=== PATIENT | female | born 1950 | race Caucasian/White ===

== ENCOUNTER → 2020-04-02 15:00 | Outpatient (CLI) | payer OTHER, SELFPAY ==
[2020-04-02 16:27] LABS: COVID19 -Nasal RAPID Negative (Negative)
== END ==
PROVIDERS: Visit Provider Nurse Practitioner
DX: Z11.59 Encounter for screening for other viral diseases (principal)
CPT/HCPCS: 87635

== ENCOUNTER 2020-04-04 12:13 | Day surgery (SDC) | payer OTHER, SELFPAY ==
[2020-03-24 12:57] VITALS: BMI 31.1
[2020-04-04] VITALS (14 sets, daily range): BP systolic 89–181; BP diastolic 41–81; PULSE 69–94; RESP 15–93; TEMP 35.9–36.9; O2SAT 16–98; BMI 31.1
--- NOTE | 2020-04-04 | DI.RAD.S_ITS ---
PROCEDURE: XR PELVIS 1-2V INDICATIONS: POST OP TECHNIQUE: 1 view of the lower pelvis acquired. COMPARISON: [facility], CR, XR HIP LT 1V, 04/04/2020, 14:46. FINDINGS: Bones: Patient is status post left total hip arthroplasty, with hardware components in expected positions. The hip joint appears congruent. The visualized bony structures appear intact. Soft tissues: Overlying postoperative changes are noted. No suspicious soft tissue densities. Atherosclerotic vascular calcifications are seen bilaterally. IMPRESSION: Status post left hip arthroplasty with expected postoperative findings. Dictated by: Crow Gloria M.D. on 04/04/2020 at 15:37 Approved by: Crow Gloria M.D. on 04/04/2020 at 15:38
--- NOTE | 2020-04-04 06:00 | DI.RAD.S_ITS ---
PROCEDURE: XR HIP LT 1V INDICATIONS: INNER OP TECHNIQUE: 1 view(s) of the hip acquired. COMPARISON: None. FINDINGS: Single intraoperative fluoroscopic image demonstrating left hip arthroplasty in expected alignment Dictated by: Xander Thomas M.D. on 04/04/2020 at 15:56 Approved by: Xander Thomas M.D. on 04/04/2020 at 15:56
--- NOTE | 2020-04-04 12:59 | PM.PREOP ---
Pre-operative Note COVID-19 COVID-19 status: Negative Result date/Date tested (Pos, Neg/Pending): 04/02/20 Interval Note History & Physical reviewed/Exam performed by Physician: Yes Changes to H&P: No H&P completed within 30 days and has changed as indicated here:: Plan for left anterior HAKAN
[2020-04-04] MEDS: MELOXICAM 7.5 MG TABLET 15 MG PO (13:07)
[2020-04-04] MEDS: ACETAMINOPHEN 325 MG TABLET 975 MG PO (13:07)
[2020-04-04] MEDS: PREGABALIN 75 MG CAPSULE PO (13:07)
[2020-04-04] MEDS: LACTATED RINGERS 1,000 ML 42 ML IV ×3 (13:08→15:39)
[2020-04-04] MEDS: CEFAZOLIN 2 GM/100 ML FROZ.PIGGY IV ×2 (13:37→21:40)
[2020-04-04] MEDS: TRANEXAMIC ACID 1,000 MG VIAL 1000 MG INJ ×2 (14:04→15:26)
--- NOTE | 2020-04-04 14:25 | SUR.OPER ---
Supine on padded [place] table with bilateral legs secured in padded positioning boots and suspended in positioning spars, operative leg in traction per surgeon. Head on one pillow. Arm on non-operative side secured on padded armboard <90 degrees abduction. Arm on operative side padded and resting across chest then secured with tape over sheet. Padded perineal post in place per surgeon.
[2020-04-04] MEDS: ROPIVACAINE 0.5% PF 5 MG/ML 20ML VIAL 60 ML INJ (14:40)
[2020-04-04] MEDS: MORPHINE 4 MG/ML INJ INJ (14:40)
[2020-04-04] MEDS: KETOROLAC 30 MG/ML VIAL IV (14:40)
[2020-04-04] MEDS: SODIUM CHLORIDE IRRIG SOLUTION 250 ML, POVIDONE-IODINE SPONGE STICKS 1 APPLIC IRR (14:42)
--- NOTE | 2020-04-04 15:39 | PM.OP.1 ---
Operative Date/Time/Diagnoses Date of procedure: 04/04/20 Time of procedure: 15:39 Pre-op diagnosis: left hip OA Post-op diagnosis: same Procedure & Clinicians Procedure: left hip anterior HAKAN Same procedure as scheduled: Yes Indications: left hip OA resistant to further conservative measures Surgeon: Perry Ruiz Silver Designer: Braeden Clark Anesthesia Type: Spinal and Sedation Operative Notes Findings: left hip OA with femoral head collapse, leg shortening Closure Type: primary Prosthetic devices, grafts, tissues, transplants, or devices: Alaniz and Nephew 52mm R3 cup 52 x 36mm neutral XLPE liner 1x 25mm screw 1x 20mm screw Anthology size 5 stem 36 + 0 biolox head Estimated Blood Loss (mL): 300 Blood products transfused: none Procedure in detail: Patient was met in the preoperative holding area where the site and side of surgery were marked by . Informed consent had been reviewed and signed in clinic but was also reviewed in the preop holding area. All last minute questions were answered. Patient was then brought back into the operating room where she was transferred onto the [place] table after receiving a spinal anesthetic. Both feet were then placed in well-padded on the table boots and the left lower extremity was then prepped and draped in normal sterile fashion. A surgical time-out was performed verifying the site and side of surgery as well as the name of the patient. A 6 cm long incision starting approximately 2 cm distal and 1 cm lateral to the ASIS was made in the skin aiming towards the fibular head with a #10 blade. Electrocautery was then used to dissect down to the level of the tensor fascia. A new #10 bllade was then used to incise the tensor fascia. An allis clamp was placed on the medial leaflet of the tensor fascia. The tensor muscle itself was then reflected laterally and a Meyerding was used to retract the rectus femoris medially. This gave us good exposure to the ascending circumflex femoral vessels which were coagulated. A Cobra was then placed over the superior aspect of the femoral neck and a 2nd Cobra was placed into the inferior aspect of the femoral neck. A bent Hohmann was then placed over the anterior lip of the acetabulum giving us good capsular exposure. An inverted T-shaped capsulotomy was then performed. FiberWire stitch was placed in the superior and inferior leaflet and cobras were then placed intracapsularly. This gave us good femoral neck exposure. A reciprocating saw was then used to make the femoral neck cut the head was then removed using a corkscrew. The soft tissue protector sleeve was then placed into the wound and retractor was then replaced to give us good acetabular exposure. A [place] blade was then used to remove the labrum followed by electrocautery used to remove the pulp in our. I began reaming with a 42 mm Reamer to medialized down to the base of the cotyloid fossa. At this point fluoroscopy was brought in and subsequent reaming was performed under fluoroscopic guidance upsizing by 2s as we went until we got to a size 50 mm Reamer which had good fit then reamed 1 more to 51 and selected a 52 mm R3 cup. This was impacted into place under fluoroscopic guidance and 2 screws were then placed. The neutral offset 52 mm x 36 mm polyethylene liner was then impacted into place and the patient was used to confirm that all tabs were flushed with the acetabular rim. At this point we turned our attention the femoral side the femur was brought into neutral rotation and a femoral elevator hook was placed on the posterior aspect of the femur the femur was then externally rotated to 115? extended to the floor and adducted. A [place]wood retractor was then placed over the calcar and a bent Hohmann was placed over the superior aspect of the superior leaflet of the capsulotomy the capsule was then released from the inner portion of the greater trochanter giving us good exposure of the short external rotators. A large single prong retractor was then placed over the greater trochanter a partial release of the short external rotators was performed. We then began with a canal finder followed by zion mortensen and then we began broaching starting with a size 1 and going up by 1s until we got to a size 5. I then calcar planned off of the size 5 broach.Then placed a standard offset neck with a 36+ 0 head and reduced the hip the hip was stable to 120? of external rotation as well as 90? of external rotation extension to the floor. Fluoroscopy was brought in to confirm leg lengths. We appeareded 1-2 mm short on operative side. The hip was then dislocated the trial components were then removed.. I then selected a size 5 standard offset anthology stem this was then impacted into place, the stem sat up 1-2 mm from our calcar cut. A 36 + 0 Biolox head was then selected and placed onto the trunnion malleted into place. The hip was then reduced a final time and again found to be stable through range of motion. Local anesthetic was then infiltrated into the capsulotomy as well as the periarticular soft tissues. Betadine solution was then allowed to soak it in the wound while final fluoroscopic images were taken the Betadine solution was then lavage away with copious normal saline. I then closed the capsulotomy with a running Ethibond suture in the FiberWire tag sutures were then removed. The tensor fascia was then repaired with an 0 Vicryl in running locking fashion followed by 2 Vicryl in the subcutaneous layer followed by 3-0 Stratafix and Aquacel dressing. Complications: none Post-operative Condition: stable Disposition: PACU Plan for aftercare: WBAT LLE, 24 hours post-op abx, ASA 81mg BID for 6 weeks for DVT prophylaxis
--- NOTE | 2020-04-04 16:26 | SUR.PHASEI ---
Phase I- pt arrived from PACU, VSS, BP was significantly lower than on admit however pt states her baseline BP is SBP around 130's. Denies Dizziness or lightheadedness. Tolerated water to drink, no N/V. Able to feel leg, stated felt ok, slightly different than normal but no pain at all. Paola JOHNSON called report and pt transported to room 210 in bed with 2 RN.
[2020-04-04] MEDS: LACTATED RINGERS 1,000 ML 125 ML IV (17:53)
[2020-04-04] MEDS: NICOTINE 21 MG PATCH TOP (18:16)
[2020-04-04] MEDS: ACETAMINOPHEN 325 MG TABLET 650 MG PO (21:39)
[2020-04-04] MEDS: ASPIRIN EC 81 MG TABLET PO (21:40)
[2020-04-04] MEDS: DOCUSATE 100 MG CAPSULE PO (21:40)
[2020-04-04] MEDS: ATORVASTATIN 20 MG TABLET 80 MG PO (21:40)
[2020-04-04] MEDS: GABAPENTIN 600 MG TABLET PO (21:40)
--- NOTE | 2020-04-04 22:33 | PC.NURSE ---
BLADDER SCAN AT APPROX 22:00 ONLY 111ML,NO PRESSURE OR NEED TO URINATE
[2020-04-05 00:05] VITALS: BP 98/49; PULSE 77; RESP 18; TEMP 35.9; O2SAT 96
[2020-04-05] MEDS: LACTATED RINGERS 1,000 ML 125 ML IV ×2 (01:44→09:50)
[2020-04-05 04:39] VITALS: BP 94/64; RESP 18; TEMP 35.9; O2SAT 95
[2020-04-05] MEDS: CEFAZOLIN 2 GM/100 ML FROZ.PIGGY IV (05:13)
[2020-04-05 05:59] LABS: Hematocrit 25.3 % (36-46); Hemoglobin 8.5 g/dL (12.0-16.0)
--- NOTE | 2020-04-05 06:16 | PC.NURSE ---
Patient has not voided during NOC shift. Bladder scanner needs maintenance and is unavailable for use. Patient's bladder is mildly distended and she has no urge to void. Straight catheter inserted at 0600 and 300mL of clear and yellow urine removed from the bladder.
[2020-04-05 06:17] LABS: Add Manual Diff / Slide Review NO; Basophils Absolute Auto 0 /uL (0-100); Basophils Percent Auto 0.3 % (0-2); Eosinophils Absolute Auto 100 /uL (0-450); Eosinophils Percent Auto 1.6 % (2-4); Lymphocytes Absolute Auto 1400 /uL (1100-4500); Lymphocytes Percent Auto 15.6 % (25-40); Mean Corpuscular HGB Conc 33.2 % (30-36); Mean Corpuscular Hemoglobin 33.3 PG (26-34); Mean Corpuscular Volume 100.5 fL (80-100); Monocytes Absolute Auto 700 /uL (0-900); Monocytes Percent Auto 8.2 % (3-14); Neutrophils Absolute Auto 6700 /uL (1500-7000); Neutrophils Percent Auto 74.3 % (50-75); Platelet Count 197 X10^3/uL (150-400); Red Blood Cell Count 2.56 X10^6/uL (4.0-5.2); Red Cell Distribution Width 12.5 % (11.6-14.8); White Blood Cell Count 9.1 X10^3/uL (4.5-11.0)
--- NOTE | 2020-04-05 07:43 | P.PN_ITS ---
Subjective Subjective Date Patient Seen: 04/05/20 Time Patient Seen: 07:43 Interval history: POD #1 s/p left total hip arthroplasty anterior approach with Dr. Ruiz. She has not been up with physical therapy. She was on 2 L nasal cannula last night. Patient had to be straight cathed last night. She has not gone yet this morning. Exam Vital Signs (past 8 hours): - 04/05/20 00:05 04/05/20 04:39 Temperature 96.6 F L 96.6 F L Pulse Rate 77 Respiratory Rate 18 18 Blood Pressure 98/49 L 94/64 Pulse Oximetry 96 95 Oxygen Delivery Method Nasal Cannula Oxygen Flow Rate 2 Narrative Exam Narrative: Patient lying in bed no acute distress. She is alert oriented x3. Calves are soft, compressible, nontender bilaterally. SCDs on and functioning. She is able to actively dorsiflex plantar flex. Dressing on left hip is CDI. Objective Labs Result Diagrams: 04/05/20 05:27 Labs: Laboratory Results - last 24 hr 04/05/20 05:27 WBC 9.1 RBC 2.56 L Hgb 8.5 L Hct 25.3 L MCV 100.5 H MCH 33.3 MCHC 33.2 RDW 12.5 Plt Count 197 Neut % (Auto) 74.3 Lymph % (Auto) 15.6 L [place] % (Auto) 8.2 Eos % (Auto) 1.6 L Baso % (Auto) 0.3 Neut # (Auto) 6700 Lymph # (Auto) 1400 [place] # (Auto) 700 Eos # (Auto) 100 Baso # (Auto) 0 PFSH Medical History (Updated 03/24/20 @ 13:44 by Ruth Randolph RN) Aneurysm of superior mesenteric artery Calcification of abdominal aorta Cellulitis COPD (chronic obstructive pulmonary disease) Current every day smoker Depression Easy bruisability HLD (hyperlipidemia) HTN (hypertension) Neuropathy Osteoarthritis Surgical History History of hysterectomy Hx of repair of right rotator cuff Hx of tonsillectomy Social History household members: spouse Smoking Status: Current every day smoker alcohol intake: current Assessment & Plan Post-op Postoperative Procedures: Procedures Operation Date: 04/04/20 13:45 Actual Procedures Side Surgeon p Total Hip Arthroplasty/Anterior Approach Left Perry Ruiz MD patient will mobilize with physical therapy today. She has had acute urinary retention and was unable to void last night requiring straight catheterization. We will continue to monitor today. She has acute postoperative blood loss ane santi with an H&H of 8.5/25.3. Patient can start vitamin-C 500 mg b.i.d. Continue current pain control, she has been on chronic Vicodin and will likely need oxycodone once the block fully wears off. If patient can void today and mobilize safely she could go home today. Quality VTE Deep Vein Thrombosis/Pulmonary Embolism Present on Admission: No
[2020-04-05 08:00] VITALS: BP 119/59; PULSE 98; RESP 16; TEMP 37.4; O2SAT 94
[2020-04-05] MEDS: OXYCODONE IR 10 MG TABLET PO ×2 (08:43→13:09)
[2020-04-05] MEDS: hydroCHLOROthiazide 25 MG TABLET PO (08:43)
[2020-04-05] MEDS: ASPIRIN EC 81 MG TABLET PO (08:43)
[2020-04-05] MEDS: ACETAMINOPHEN 325 MG TABLET 650 MG PO (08:43)
[2020-04-05] MEDS: GABAPENTIN 600 MG TABLET PO (08:43)
[2020-04-05] MEDS: atenoloL 25 MG TABLET PO (08:43)
[2020-04-05] MEDS: DOCUSATE 100 MG CAPSULE PO (08:43)
[2020-04-05] MEDS: DULOXETINE 30 MG CAPSULE 60 MG PO (08:44)
[2020-04-05] MEDS: NICOTINE 21 MG PATCH TOP (08:44)
[2020-04-05 09:04] VITALS: PULSE 90; RESP 20; O2SAT 96
--- NOTE | 2020-04-05 10:14 | CM.DANOTE ---
DCP/Assessment: Reviewed chart. Patient Is a 69yr old female admitted to [facility] for elective left HAKAN performed on 04-04-20. PCP is Ron Doyle. Primary pay[facility] is [facility]. Met with patient explained CM/SW role. Therapy evaluation currently pending. Patient reports that she has supportive spouse at home. Patient resides in 1 level home and plans to do outpatient therapy in [place] beginning next week. Patient reports that she has no identified d/c planning needs. P: Home when stable. SHANA Burnette Discharge Planning/Care Management CM Discharge Assessment Start: 04/05/20 10:02 Freq: Status: Active Protocol: Document 04/05/20 10:02 KJS (Rec: 04/05/20 10:14 KJS [id number]) Discharge Planning Assessment Assigned Grain Operator SHANA Burnette Contact Information Marco Aness Kramer (spouse) [phone] Advance Directives? Yes: Unknown location History Provided By Patient,Medical Record Prior Living Arrangements House Household Members spouse Independent with ADL's Yes Is patient alert and oriented? Yes DME Already Rented / Owned FWW / Walker Barriers to Discharge No Discharge Plan Home Transportation Arrangement Family to provide transport. Referrals Initiated None needed Whiteboard Updated in Patient Room with Yes name and ext. # of Grain Operator Review Status In Process Next Review Type Continued Stay Review Pre-Anesthesia Assessment Start: 03/24/20 12:57 Freq: Status: Complete Protocol: Document 03/24/20 12:57 CAB (Rec: 03/24/20 13:44 CAB [id number]) Pre-Anesthesia Assessment PAC Comment Pt would like a nicotine patch while inpatient, 2PPD smoker Preferred Name Sebastian Patient Information Reviewed Via Phone Assessment Assessment Completed With Patient Comment Labs/EKG done per pt, not here , COVID screen @ 04/01/20 Primary Care Provider Ron Doyle Medical Clearance Received Yes Seen Specialist in Last 12 Months Yes Specialist Seen Orthopedist Comment PCP visit 10/26/19 and clearance scanned Primary Language [place] Putaway Driver Required No Height 154.94 cm Weight 74.843 kg Body Mass Index (BMI) 31.1 Hearing Ability Normal Visual Assist Magnifying Glass Dentition Type Teeth, Natural Present,Teeth, Missing Barriers to Learning Memory Hx Anesthesia Reactions No Hx Family Anesthesia Reaction Yes: Son woke up in middle of surgery Hx Malignant Hyperthermia No Hx Blood Transfusions No Anesthesia Review Requested Yes: Reviewed prior to scheduling alcohol intake current alcohol intake frequency 0-2 drinks per day Smoking Status Current every day smoker Tobacco type cigarettes Smoking packs per day 2 Substance Use Type marijuana Comment Pt advised not to smoke marijuana 24 hours prior to surgery Pain Present Pain Reported Musculoskeletal Symptoms Abnormal Gait,Back Pain, Difficulty Walking,Joint Pain, Neck Pain History of Falling (Recent or History of Yes ) Patient is completely paralyzed or No completely immobile Prosthesis or Orthotic Device Cane,Front Wheel Walker Mental Status Oriented to own ability Is patient on oxygen? No Does patient have LOVE/SOB Yes Hx Sleep Apnea No Currently Taking a Beta Shyanne Yes: Atenolol Can You Climb a Flight of Stairs Without No SOB Hx Chest Pain Yes Hx SOB Yes Hx Syncope or Dizziness No Anti-Coagulant Therapy No Has a Rotary Cutter No Cardiac Testing No Hx Pacemaker/ICD No Pacemaker Rep Required? No Cardiac Clearance Received Not Applicable Diet Type At Home Regular dysphagia No Gastrointestinal Symptoms Constipation,Diarrhea Bladder Pattern Incontinent Urinary Catheter Present No Hx Urinary Self Catheterization No Diabetes No Patient No Lactating No Hx Drug Resistant Organism No Presence of External or Internal Medical No Devices Have you had any close contact with No someone diagnosed with COVID-19? Marital Status Lives With spouse Prior Living Arrangements House Number of Floors (Floors) One Floor Support System Spouse Does the Patient Have Assistance After Yes Surgery Patient Discharge Plan Description Return Home Comment Pt advised overnight length of stay per surgeon Feels Safe in Current Environment Yes Been Physically Hurt or Threatened By a No Person in Current Environment Do you have thoughts of harming yourself None or others? Are you currently considering suicide? No Do you have a plan to hurt yourself or No Plan others? Do You Have Any Spiritual Beliefs That No May Affect Your HC Choices? Do You Have Any Cultural Practices That No May Affect Your HC Choices? Who Can We Speak to About Patient's Care Family, friends Identifying Code for Release of Patient Declines to issue Information Health Care Proxy/Next of Kin Sebastian Cote () Health Care Proxy or [phone] Emergency Contact Name Sebastian Cote () Emergency Contact or [phone] Advance Directives? Yes: Unknown location Power of Undercutter No PAC Instructions Do not shave/clip surgical site,Durable medical equipment ,Medications to take/avoid, Nasal antibiotic,No ETOH/ petroleum product on skin DOS, NPO,Pre-surgical wash,Sturdy shoes/comfortable clothes,Do not bring valuables and remove jewelry
--- NOTE | 2020-04-05 11:00 | PT.IIE ---
Current Diagnoses Unilateral primary osteoarthritis, left hip (04/04/20) Surgery Performed Operation Date: 04/04/20 13:45 Actual Procedures p Total Hip Arthroplasty/Anterior Approach(Left) - Perry Ruiz MD Surgical History (Last Reviewed 04/05/20 @ 09:31 by Treasure Cristobal PA-C) History of hysterectomy Hx of repair of right rotator cuff Hx of tonsillectomy Medical History (Last Updated 03/24/20 @ 13:44 by Ruth Randolph RN) Aneurysm of superior mesenteric artery Calcification of abdominal aorta Cellulitis COPD (chronic obstructive pulmonary disease) Current every day smoker Depression Easy bruisability HLD (hyperlipidemia) HTN (hypertension) Neuropathy Osteoarthritis Physical Therapy Inpatient Evaluation/Re-Eval M1 PT/OT-IP Prior Functional Status Start: 04/05/20 12:49 Freq: NEEDED Status: Active Protocol: Document 04/05/20 11:00 AB (Rec: 04/05/20 13:01 [email or web address]) Medical Review Prior Functional Status Medical History Reviewed Yes Communication able to make needs known Mobility and Gait pt stated that she is modified independent witha ll mobilities and ambualtion using SPC Social History Household Members spouse Living Arrangements House Number of Floors (Floors) One Floor Number of Stairs To Enter/Railing? 2 platform steps to enter the house from the front Home Environment Standard Height Toilet,Tub/ Shower Home Equipment Front Wheel Walker,Straight Cane,Raised Toilet Seat Without Armrests,Hand Held Shower,Grab Bars In Shower Additional Social History Comment spouse will assist pt for the first 2 days and then daughter will be staying with pt to assist her afterwards. M2 PT-IP Current Condition Start: 04/05/20 12:49 Freq: NEEDED Status: Active Protocol: Document 04/05/20 11:00 AB (Rec: 04/05/20 13:01 AB [email or web address]) Physical Therapy Current Condition Current Condition Evaluation Date 04/05/20 Treatment Diagnosis s/p L HAKAN anterior approach; difficulty in walking Onset Date 04/04/20 Precautions Anterior Hip Precautions No Hip Extension,No Hip External Rotation Weight Bearing Status Weight Bearing Status Weight Bear as Tolerated Allowed Weight Bearing Amount (enter % LLE: WBAT or #) (%) M3 PT-IP Subjective Start: 04/05/20 12:49 Freq: NEEDED Status: Active Protocol: Document 04/05/20 11:00 AB (Rec: 04/05/20 13:01 [id number]) Subjective Physical Therapy Visit Type Type Initial Evaluation Visit Start Time 11:00 Visit Stop Time 11:47 Total Visit Minutes 47 Number of SCRIPT EDITOR Visits 0 Physical Therapy Visit Comments Patient Comments pt is agreeable to do PT Therapy Pain Assessment Pain When Pain Assessed At Rest Pain Present Pain Present Pain Reported Location Left hip Intensity 6 Scale Used Numeric (0 - 10) Description Aching Pain Management Techniques Distraction,Modification of Treatment,Timing of Activity with Medications M4 PT-IP Mobility and Gait Start: 04/05/20 12:49 Freq: NEEDED Status: Active Protocol: Document 04/05/20 11:00 AB (Rec: 04/05/20 13:01 [id number]) PT-Bed Mobility Assessment Supine to Sit Supine to Sit Independent PT-Transfer Assessment Sit to and From Stand Sit to and from Stand Standby Assistance,Use of Upper Extremities Equipment Transfer Assistive Device Gait Belt,Front Wheeled Walker Orthotic/Prosthetic Devices or Brace: No Transfers Transfer Destination Chair Transfer Technique ambulated using FWW Transfer Ability Level of Assist Standby Assistance,Contact Guard Assistance,1 Person Assistance,Use of Upper Extremities Comments Mobility Comments educated pt on hip precautions . completed supine to sit SBA . completed sit to stand SBA and ambulated in room using FWW SBA to CGA. requires occasional reminders for hip precautions. ambulated out in the hallway using fWW SBA and completed up/down platform steps x 3 sets with initial cues for techniques and safety but was able to complete without cues on last set. pt ambulated ~ 50 ft and back to the room using FWW SBA to CGA towards end of ambulation with increase forward trunk flexion noted and cues pt for upright posture. positioned pt on chair. call light and table placed within reach. Gait Assessment Gait Gait Assistance Required: Standby Assistance,Contact Guard Assist Distance (Feet) 50 Able to Maintain Weight Bearing Status Yes During Gait Assistive Devices Assistive Device Gait Belt,Front Wheeled Walker Orthotic/Prosthetic Devices or Brace: No Gait Deviations General Gait Pattern Antalgic,Flexed Trunk,Step-to Gait Factors Limiting Gait Function Factors Limiting Gait Function Decreased Activity Tolerance, Decreased Strength,Difficulty Following Directions, Incoordination,Limited Range of Motion,Pain,Poor Balance, Poor Safety Awareness Stair Climbing Assessment Evaluation Level of Assist On Stairs Contact Guard Assistance,1 Person Assistance Devices Stair Climbing Assistive Devices Front Wheel Walker Technique/Endurance Stair Climbing Direction Ascend and Descend Stair Climbing Technique Step to Step Number of Steps Climbed 1 Query Text: Stair Climbing Set # Repetitions (reps) 3 PT-Balance Assessment Sitting Balance and Reactions Static Sitting Balance Ability Good Dynamic Sitting Balance Ability Good Standing Balance and Reactions Static Standing Balance Ability Fair Dynamic Standing Balance Ability Fair Device Used FWW M5 PT-IP Objective Assessments Start: 04/05/20 12:49 Freq: NEEDED Status: Active Protocol: Document 04/05/20 11:00 AB (Rec: 04/05/20 13:01 [email or web address]) Orientation Orientation/Cognition Level of Alertness Alert Orientation Name,Age,Place,Situation Language Function Ability No Deficits Noted Safety Awareness Decreased Safety Awareness Memory Description Short Term Impaired Gross Range of Motion Lower Extremity ROM Assessment Within Functional Limits Strength Lower Extremity Strength Assessment Left Impaired Hip 4-/5 Knee 4-/5 Muscle Tone Muscle Tone WNL Yes M6 PT-IP Treatment Start: 04/05/20 12:49 Freq: NEEDED Status: Active Protocol: Document 04/05/20 11:00 AB (Rec: 04/05/20 13:01 [email or web address]) Physical Therapy Treatment Education Education Provided Precautions,Weight Bearing Status,Post-Op Packet,Safety M7 PT-IP Assessment and Plan Start: 04/05/20 12:49 Freq: NEEDED Status: Active Protocol: Document 04/05/20 11:00 AB ([facility]05[facility]20 [email or web address] Summary Assessment and Plan Potential Rehabilitation Potential Good Status of Condition at Evaluation Stable Summary Impairments Pain,ROM,Strength,Balance, Coordination,Sensation,Tone, Cognition,Bed Mobility, Transfers,Gait,Activity Tolerance Assessment Summary pt requiring SBA to CGA with mobility using FWW. pt plans to go home and will have her family to assist her. pt stated that she has outpt PT set up already. pt may go home when medically stable. Goals Bed Mobility Goal Independent Transfer Goal Independent Gait Goal Independent Gait Distance 200 Other Goals up/down 2 platform steps SBA using FWW Days to Meet Goals 5 Frequency of Treatment Frequency Of Treatment Twice a Day Treatment Plan Physical Therapy Treatment Plan Bed Mobility Training,Transfer Training,Gait Training, Therapeutic Exercise,Balance Retraining,Post Op Education, Discharge Planning,Hot or Cold Pack,Neuromuscular Re-ed, Coordination Retraining,Manual Therapy Recommendations To Nursing Amount of Assist Needed 1 Person Assist Discharge Recommendations PT Discharge Recommendations Home with Assistance, Outpatient PT Transportation Needs at Discharge Private Vehicle
[2020-04-05 11:40] VITALS: BP 129/62; PULSE 85; RESP 16; TEMP 36.7; O2SAT 90
--- NOTE | 2020-04-05 13:51 | PC.NURSE ---
Patient having a tough time urinating this shift. Finally at 1357 patient had 200cc out. VSS. Lung sounds inspiritory wheezing throughout. Pain is well controlled w/ oxycodone 10mg PRN.
--- NOTE | 2020-04-05 14:12 | PC.NURSE ---
Patient educated about new medications Oxycodone, SS of infection, SS of stroke, CHF, Activity, and diet. Patient verbalized understanding to all discharge teaching. Patient discharged w/ all belongings and paper prescription for Oxycodone. Patient left facility via wheelchair to private vehicle.
--- NOTE | 2020-04-05 15:27 | PT-IP ANOTE ---
Pt d/c'd before PM treatment session.
== END 2020-04-05 14:26 | disposition home or self-care (01) ==
LOC: OR 12:17 → AC 12:18
PROVIDERS: PCP Family Medicine; Referring Provider Orthopaedic Surgery Adult Reconstructive Orthopaedic Surgery; Visit Provider Orthopaedic Surgery Adult Reconstructive Orthopaedic Surgery
PROC: (CPT 27130; principal; 2020-04-04 13:45)
DX: M16.12 Unilateral primary osteoarthritis, left hip (principal); I10 Essential (primary) hypertension; J44.9 Chronic obstructive pulmonary disease, unspecified; F17.210 Nicotine dependence, cigarettes, uncomplicated; E66.9 Obesity, unspecified; Z68.31 Body mass index [BMI] 31.0-31.9, adult; G62.9 Polyneuropathy, unspecified
CPT/HCPCS: 27130; 36415; 72170; 73501; 76000; 85025; 94760; 94762; 97116; 97161; C1776; J0690; J1885; J2270; J2274; J2704